=== PATIENT | female | born 1960 | race Caucasian/White ===

== ENCOUNTER 2022-02-16 13:28 | Inpatient (IN) | payer MEDICAID, SELFPAY ==
[~2022-02-16] VITALS: Ht 162.6 cm; Wt 83.5 kg
[2022-02-16 13:30] VITALS: BP_SYST 151
[2022-02-16] MEDS ORDERED: NITROGLYCERIN 0.4 MG TAB.SUBL SL ONE (14:00)
[2022-02-16] MEDS ORDERED: ASPIRIN 81 MG TAB.CHEW ONE (14:25)
[2022-02-16 14:26] LABS: BILIRUBIN,URINE NEGATIVE (NEGATIVE); CLARITY/URINE CLEAR (CLEAR); COLOR,URINE YELLOW (YELLOW); GLUCOSE,URINE NEGATIVE (NEGATIVE); KETONES,URINE TRACE (NEGATIVE); LEUKOCYTE ESTERASE ,URINE TRACE (NEGATIVE); NITRITE, URINE NEGATIVE (NEGATIVE); PH,URINE 5.5 (5.0-8.0); PROTEIN URINE NEGATIVE (NEGATIVE); UROBILINOGEN,URINE 0.2 (0.2-1.0)
[2022-02-16] MEDS ORDERED: ASPIRIN 81 MG TAB.CHEW PO ONE (14:30)
[2022-02-16 14:31] LABS: BASOPHILS # (AUTO) 0.1 K/uL (0.0-0.2); BASOPHILS % (AUTO) 0.9 % (0.0-2.0); EOSINOPHILS # (AUTO) 0.2 K/uL (0.0-0.4); EOSINOPHILS % (AUTO) 2.1 % (0.0-4.0); HEMATOCRIT 42.1 % (36-48); HEMOGLOBIN 14.2 g/dL (12.0-16.0); LYMPHOCYTES # (AUTO) 2.8 K/uL (1.0-5.5); LYMPHOCYTES % (AUTO) 31.3 % (20.5-51.5); MEAN CORPUSCULAR HEMOGLOBIN 28 pg (27-31); MEAN CORPUSCULAR HGB CONC 34 % (32-36); MEAN CORPUSCULAR VOLUME 84 fL (79.0-98.0); MONOCYTES # (AUTO) 0.4 K/uL (0.0-1.0); MONOCYTES % (AUTO) 4.5 % (1.7-9.3); NEUTROPHILS # (AUTO) 5.5 K/uL (1.8-7.7); NEUTROPHILS % (AUTO) 61.2 % (40.0-70.0); PLATELET COUNT (AUTO) 251 K/uL (130-430); RED BLOOD CELL COUNT(AUTO) 5.03 MIL/uL (4.2-6.2); RED CELL DISTRIBUTION WIDTH 13.6 % (9.0-15.0)
[2022-02-16 14:35] LABS: BLOOD, URINE TRACE (NEGATIVE)
[2022-02-16 14:42] LABS: BACTERIA,URINE RARE /HPF (None Seen)
[2022-02-16 14:45] LABS: CALCIUM 9.4 mg/dL (8.4-11.0); CREATININE 1.46 mg/dL (0.55-1.30)
[2022-02-16 14:50] LABS: ALBUMIN 3.7 g/dL (3.4-4.8); TOTAL BILIRUBIN 0.4 mg/dL (0.0-1.0)
[2022-02-16 14:56] LABS: POTASSIUM 3.4 mmol/L (3.5-5.1)
[2022-02-16] MEDS ORDERED: APIXABAN 2.5 MG TABLET PO SCH (21:00)
[2022-02-16 21:45] VITALS: BP_SYST 135
[2022-02-16] MEDS ORDERED: hydrALAZINE HCL 20 MG/ML VIAL IVP PRN (22:45)
[2022-02-16 22:56] VITALS: BP_SYST 138
[2022-02-16] MEDS ORDERED: ACETAMINOPHEN 325 MG TABLET PO ONE (23:00)
[2022-02-16] MEDS ORDERED: ACETAMINOPHEN 325 MG TABLET PO PRN (23:00)
[2022-02-17 02:16] VITALS: BP_SYST 135
[2022-02-17 07:27] LABS: BASOPHILS # (AUTO) 0.1 K/uL (0.0-0.2); BASOPHILS % (AUTO) 0.9 % (0.0-2.0); EOSINOPHILS # (AUTO) 0.2 K/uL (0.0-0.4); EOSINOPHILS % (AUTO) 2.5 % (0.0-4.0); HEMOGLOBIN 13.6 g/dL (12.0-16.0); LYMPHOCYTES % (AUTO) 28.6 % (20.5-51.5); MEAN CORPUSCULAR HEMOGLOBIN 28 pg (27-31); MEAN CORPUSCULAR HGB CONC 33 % (32-36); MEAN CORPUSCULAR VOLUME 84 fL (79.0-98.0); MONOCYTES # (AUTO) 0.3 K/uL (0.0-1.0); NEUTROPHILS # (AUTO) 4.5 K/uL (1.8-7.7); PLATELET COUNT (AUTO) 240 K/uL (130-430); RED CELL DISTRIBUTION WIDTH 13.7 % (9.0-15.0)
[2022-02-17 07:59] LABS: CALCIUM 9.2 mg/dL (8.4-11.0); CREATININE 1.17 mg/dL (0.55-1.30); POTASSIUM 3.3 mmol/L (3.5-5.1)
[2022-02-17 08:00] VITALS: BP_SYST 139
[2022-02-17 08:19] LABS: ALBUMIN 3.4 g/dL (3.4-4.8); FREE T4 (FREE THYROXINE) 1.1 ng/dl (0.8-1.5); PHOSPHORUS 3.7 mg/dL (2.7-4.5); THYROID STIMULATING HORMONE 1.52 uIu/mL (0.36-3.74); TOTAL BILIRUBIN 0.4 mg/dL (0.0-1.0)
[2022-02-17] MEDS ORDERED: ATORVASTATIN 10 MG TABLET PO SCH (09:00)
[2022-02-17] MEDS ORDERED: lisinopriL 20 MG TABLET PO ONE (10:45)
[2022-02-17 12:11] VITALS: BP_SYST 144
[2022-02-17] MEDS ORDERED: POTASSIUM CHLORIDE 20 MEQ TAB.PRT.SR PO ONE (13:30)
[2022-02-17 16:00] VITALS: BP_SYST 120
[2022-02-17] MEDS: POTASSIUM CHLORIDE 20 MEQ TAB.PRT.SR PO SCH (21:22)
[2022-02-17 21:27] VITALS: BP_SYST 136
[2022-02-17 23:51] VITALS: BP_SYST 126
[2022-02-18 06:50] LABS: CALCIUM 8.9 mg/dL (8.4-11.0); CREATININE 1.03 mg/dL (0.55-1.30)
[2022-02-18 07:45] VITALS: BP_SYST 124
[2022-02-18] MEDS: POTASSIUM CHLORIDE 20 MEQ TAB.PRT.SR PO SCH (08:10)
[2022-02-18] MEDS ORDERED: lisinopriL 20 MG TABLET PO SCH (09:00)
[2022-02-18] MEDS ORDERED: ATORVASTATIN 10 MG TABLET PO SCH (09:00)
[2022-02-18 12:30] VITALS: BP_SYST 125
[2022-02-18] MEDS ORDERED: LIP10 PO (14:36)
[2022-02-18] MEDS ORDERED: HYDR25TA4 PO (14:36)
[2022-02-18 14:41] VITALS: BP_SYST 125
[2022-02-18] MEDS ORDERED: LISI20TA30 PO (14:48)
[2022-02-18] MEDS ORDERED: ASPI-1457 PO (15:03)
== END 2022-02-18 15:35 | disposition home or self-care (01) | DRG 203 ==
LOC: SED 13:28 → STU 19:28
PROVIDERS: ADMIT Internal Medicine; ATTEND Internal Medicine
DX: R07.89 Other chest pain (principal); N17.0 Acute kidney failure with tubular necrosis; E11.22 Type 2 diabetes mellitus with diabetic chronic kidney disease; E66.9 Obesity, unspecified; N18.9 Chronic kidney disease, unspecified; E78.5 Hyperlipidemia, unspecified; I12.9 Hypertensive chronic kidney disease with stage 1 through stage 4 chronic kidney disease, or unspecified chronic kidney disease; E86.0 Dehydration; Z20.822 Contact with and (suspected) exposure to COVID-19; E87.6 Hypokalemia; Z79.899 Other long term (current) drug therapy; Z87.891 Personal history of nicotine dependence; Z85.42 Personal history of malignant neoplasm of other parts of uterus; Z90.710 Acquired absence of both cervix and uterus; Z80.3 Family history of malignant neoplasm of breast; Z86.718 Personal history of other venous thrombosis and embolism; Z68.31 Body mass index [BMI] 31.0-31.9, adult
CPT/HCPCS: 36415; 71045; 76770; 78579; 78580-TC; 80048; 80053; 80061; 81000; 83036; 83735; 83880; 84100; 84439; 84443; 84484; 85025; 85379; 93005; 93306; 93970; 99285; A9539; A9540; G0378

== ENCOUNTER 2024-03-30 18:55 | Emergency (ER) | payer MEDICAID ==
[~2024-03-30] VITALS: Ht 162.6 cm; Wt 83.9 kg
[~2024-03-30 18:55] MED LIST: ASPI-1457 PO; LIP10 PO; LISI20TA30 PO
[2024-03-30 19:12] VITALS: BP_SYST 176; PULSE 60; RESP 18; TEMP 97.8; O2SAT 98
[2024-03-30] MEDS: KETOROLAC TROMETHAMINE 60 MG/2 ML VIAL IM ONE (20:16)
[2024-03-30] MEDS ORDERED: IBUP-1971 PO (22:43)
[2024-03-30 23:12] VITALS: BP_SYST 159; PULSE 63; RESP 18; TEMP 97.9; O2SAT 98
== END 2024-03-30 23:12 | disposition home or self-care (01) ==
LOC: SED 18:55
DX: R60.0 Localized edema (principal); M25.571 Pain in right ankle and joints of right foot; E11.9 Type 2 diabetes mellitus without complications; I10 Essential (primary) hypertension; E78.5 Hyperlipidemia, unspecified; Z79.899 Other long term (current) drug therapy
CPT/HCPCS: 99285; 93971; 73610; 96372; J1885